=== PATIENT | female | born 1990 | race Asian ===

== ENCOUNTER 2023-02-10 14:47 | Emergency (ER) | payer OTHER ==
[~2023-02-10] VITALS: Ht 152.4 cm; Wt 64.6 kg
[2023-02-10] MEDS ORDERED: BACITRACIN OINTMENT 30GM TUBE TOP ONE (19:05)
[2023-02-10] MEDS ORDERED: BACIOIN5 OP (19:13)
[2023-02-10 19:25] VITALS: BP 106/76; TEMP 98.1; O2SAT 98
== END 2023-02-10 19:31 | disposition home or self-care (01) ==
LOC: M ED 14:47
DX: T23.202A Burn of second degree of left hand, unspecified site, initial encounter (principal); X10.2XXA Contact with fats and cooking oils, initial encounter; F17.200 Nicotine dependence, unspecified, uncomplicated; Y92.009 Unspecified place in unspecified non-institutional (private) residence as the place of occurrence of the external cause; Y93.89 Activity, other specified; Y99.9 Unspecified external cause status; Z79.2 Long term (current) use of antibiotics